=== PATIENT | female | born 1975 | race Caucasian/White ===

== ENCOUNTER → 2018-05-24 | Outpatient (CLI) | payer OTHER ==
[~2018-05-24] MED LIST: ALBUTEROL2.5 MG/31 INH; ALBUTEROL2.5 MG/32 IH; LEVAQUIN 500 M500 M3 PO; PREDNISONE 20 M20 M1; PREDNISONE50 MG PO; SYMBICORT80 MCG/4.1 INH
== END ==
LOC: M.RAD 11:46
DX: R05 Cough (principal); F17.200 Nicotine dependence, unspecified, uncomplicated